=== PATIENT | male | born 1945 | race Caucasian/White ===

== ENCOUNTER 2017-12-14 09:43 | Outpatient (CLI) ==
--- NOTE | 2017-12-14 10:34 | DI ---
Exam: Two x-rays of the chest. Comparison: 02/25/2013. Reason for exam: Chronic obstructive pulmonary disease. FINDINGS: No pneumothorax, pleural effusion, or focal consolidation. Operative changes are seen aft er surgical anchor placement of a right humeral head. The cardiac silhouette is not enlarged. 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 Impression: No acute cardiopulmonary process.
== END 2017-12-14 09:44 | disposition home or self-care (01) ==
LOC: RAD 09:43
PROVIDERS: ATTEND Internal Medicine Pulmonary Disease
DX: J44.9 Chronic obstructive pulmonary disease, unspecified (principal)

== ENCOUNTER 2019-02-14 14:34 | Outpatient (CLI) ==
[2019-02-14 17:31] VITALS: BMI 29.5
== END 2019-02-14 14:35 | disposition home or self-care (01) ==
LOC: LAB 14:34
PROVIDERS: ATTEND Internal Medicine
DX: N18.9 Chronic kidney disease, unspecified (principal); R19.7 Diarrhea, unspecified
CPT/HCPCS: 36415; 80053; 85025

== ENCOUNTER 2019-02-14 16:32 | Inpatient (IN) | payer OTHER ==
[2019-02-14] MEDS ORDERED: NITROSTAT SL PRN (16:50)
[2019-02-14] MEDS ORDERED: TYLENOL PO PRN (16:50)
[2019-02-14] MEDS ORDERED: VISTARIL INJ IM PRN (16:50)
[2019-02-14] MEDS ORDERED: ATROPINE SULFATE PFS IVP PRN (16:50)
[2019-02-14] MEDS ORDERED: LOMOTIL PO ONE (16:57)
[2019-02-14 17:31] VITALS: BMI 29.5
[2019-02-14] MEDS: XOPENEX 1.25 MG NEB SCH (17:43)
[2019-02-14] MEDS: SODIUM CHLORIDE 1,000 ML IV SCH (18:24)
[2019-02-14] MEDS: PROTONIX PO SCH (18:26)
[2019-02-14] MEDS ORDERED: ZYLOPRIM ONE (19:48)
[2019-02-14] MEDS: SOLU-CORTEF 250 MG IVP SCH ×2 (20:29→20:36)
--- NOTE | 2019-02-14 20:41 | DI ---
EXAM: Single, portable AP view(s) chest. HISTORY: Shortness of breath. COMPARISON: 12/14/2017 TECHNIQUE: Single, portable APview(s) of the chest. FINDINGS: Lungs: There is hyperexpansion of the lungs with flattening of the diaphragms. The lungs are clear without consolidation or effusion. There are no suspicious nodules. There is no pneumothorax. Cardiovascular: The heart size and pulmonary vasculature is normal.. The aorta is unremarkable. Edith/Mediastinum: Normal. Osseous structures. Normal for age. IMPRESSION: No acute pulmonary disease. Hyperexpansion of the chest consistent with chronic obstructive pulmonary disease
--- NOTE | 2019-02-14 20:46 | CT ---
EXAM: Noncontrast CT of the abdomen and pelvis. HISTORY: Diarrhea. COMPARISON: 06/29/2010 MRI. TECHNIQUE: Contiguous axial images at 3 mm intervals were obtained from lung bases through the pelvi s. No contrast was given. Coronal reformats were reviewed. FINDINGS: The study is limited without contrast. CHEST: LUNG BASES: Ground-glass opacities seen in both lung bases as well as peribronchial thickening. No definite lobar consolidation. Calcified granulomas seen in the right base. HEART: The heart size is within normal limits.Minimal aortic valve calcifications are noted. ABDOMEN: Evaluation of the soft tissue organs is limited without contrast. LIVER: Noncontrast images of the liver show no solid mass lesion or intrahepatic ductal dilatation. BILIARY: The gallbladder is absent. There are clips in the gallbladder fossa. No fluid or inflamm ation is seen. The common bile duct is normal. SPLEEN: The spleen is unremarkable. A small splenule is noted. PANCREAS: The pancreas shows no mass lesion or peripancreatic inflammation. ADRENAL GLANDS: The adrenal glands are normal. RENAL: The kidneys show no hydronephrosis or nephrolithiasis. There are no obstructing ureteral st ones. No solid mass lesions are identified. There is a 3.1 cm cyst in the mid to inferior right kid carlos. A smaller 1.7 cm cyst is seen as well. AORTA: calcifications are seen. No aneurysm is identified. RETROPERITONEUM: There is no retroperitoneal or mesenteric adenopathy. BOWEL: The bowel is unopacified. There are multiple fluid-filled small bowel without dilatation. There is no obstruction or inflammatory change. There is no free fluid or free air. No significant inflammatory changes are seen. The appendix is identified and is normal. There is no significant diverticulosis or evidence of acute diverticulitis. PELVIS: BLADDER: The bladder is well distended and appears normal. GENITOURINARY STRUCTURES: The prostate is prominent. OSSEOUS STRUCTURES: The osseous structures are normal for age. IMPRESSION 1. Limited study without contrast.No acute intra-abdominal abnormality. No obstructing ureteral sto maureen. 2. The appendix is normal. 3. Multiple fluid-filled small bowel without significant dilatation. No bowel obstruction. 4. Post cholecystectomy.
[2019-02-14] MEDS ORDERED: ZYLOPRIM PO SCH (21:00)
[2019-02-15] MEDS: XOPENEX 1.25 MG NEB SCH ×5 (00:44→23:05)
[2019-02-15] MEDS: SOLU-CORTEF 250 MG IVP SCH ×3 (04:39→20:39)
[2019-02-15] MEDS: PROTONIX PO SCH ×2 (06:01→16:49)
[2019-02-15] MEDS: SODIUM CHLORIDE 1,000 ML IV SCH ×2 (06:15→18:30)
[2019-02-15] MEDS ORDERED: ASPIRIN EC PO SCH (08:00)
--- NOTE | 2019-02-15 08:47 | PCM.PROG ---
Attending Provider: ATTENDING PROVIDER: Dr. MARIANO VANEGAS This patient is seen with Stefania Garza, Nurse Practitioner. DATE OF SERVICE: 02/15/19 SUBJECTIVE: This 74 year old WHITE/ M was hospitalized 02/14/19. The patient is resting comfortably. He is scheduled for barium swallow with upper GI this morning. Kidney function slightly improved. REVIEW OF SYSTEMS: CONSTITUTIONAL: No night sweats. No fatigue, malaise, lethargy. No fever or chills. Weakness. HEENT: Eyes: No visual changes. No eye pain. No eye discharge. ENT: No runny nose. No epistaxis. No sinus pain. No odynophagia. No congestion. RESPIRATORY: Cough, no congestion. No hemoptysis. No shortness of breath. CARDIOVASCULAR: No angina symptoms. No CHF symptoms. No atypical chest pain for CAD. No palpitations. No orthopnea.. GASTROINTESTINAL: No abdominal pain. Nausea. No diarrhea or constipation. No hematemesis. No hematochezia. GENITOURINARY: No urgency. No frequency. No dysuria. No hematuria. No obstructive symptoms. No discharge. No pain. No significant abnormal bleeding. MUSCULOSKELETAL: No musculoskeletal pain; no joint swelling. NEUROLOGICAL: Awake, alert, oriented to time, place and person. No headache. No neck pain. No syncope. No seizures. No dizziness. PSYCHIATRIC: Not anxious. No depression. No suicidal thoughts. No homicidal thoughts. SKIN: No rash. No lesions. No wounds. ENDOCRINE: No unexplained weight loss. No weight gain. HEMATOLOGIC/LYMPHATIC: No anemia. No purpura. No petechiae. No prolonged or excessive bleeding. No palpable lymph nodes. PHYSICAL EXAMINATION: GENERAL: The patient is awake, alert and oriented, lying in bed in no distress. VITAL SIGNS: Temperature 96.3 F, Pulse 80, Respiratory Rate 14, BP 125/88, Pulse Ox 92% HEENT: Head normocephalic, atraumatic. Eyes: Extraocular muscles are intact. Pupils are equal, round and reactive to light and accommodation. Ears: No lesions. Nose appeared normal. Throat: No exudate or erythema. NECK: Supple. No JVD, no carotid bruit. No lymphadenopathy or thyromegaly. LUNGS: Decreased breath sounds. Clear to auscultation. Percussion note normal. Chest symmetrical. HEART: S1, S2, no S3. No murmurs. No cyanosis or clubbing. No ascites. Pulses: Dorsalis pedis and posterior tibial pulses +1 to +2 both sides. ABDOMEN: Soft. Non-tender. Bowel sounds active. No CVA tenderness. No mass felt. EXTREMITIES: No edema. Full range of motion of all extremities, equal. NEUROLOGIC: No focal deficit. Cranial nerves II through XII are grossly intact. No headache, no double vision or headache. SKIN: Not dry. Intact. Turgor-normal. LYMPHATIC: No palpable lymph nodes/no lymphedema. MUSCULOSKELETAL: Normal joints with no swelling. Muscle tone is normal. LAB REVIEW: 02/15/19 05:30 02/15/19 05:30 02/15/19 05:30: Sodium 132.2 L, Potassium 5.18 H, Chloride 98.7, Carbon Dioxide 20.7 L, Anion Gap 17.98, BUN 54.2 H, Creatinine 1.81 H, Estimated GFR (MDRD) 37.00, BUN/Creatinine Ratio 29.94, Glucose 266.2 H, Calcium 9.47, Total Bilirubin 0.41, AST 15.8 L, ALT 16.7, Alkaline Phosphatase 57.7, Total Protein 6.29 L, Albumin 4.15, Globulin 2.14, Albumin/Globulin Ratio 1.93 02/15/19 05:30: WBC 9.30, RBC 4.40 L, Hgb 13.1 L, Hct 40.2 L, MCV 91.4, MCH 29.8 , MCHC 32.6, RDW Coeff of Karen 13.7, Plt Count 285, Immature Gran % (Auto) 0.9, Neut % (Auto) 92.0, Lymph % (Auto) 4.5 L, [place] % (Auto) 1.7, Eos % (Auto) 0.8, Baso % (Auto) 0.1, Immature Gran # (Auto) 0.1, Neut # (Auto) 8.6 H, Lymph # ( Auto) 0.4 L, [place] # (Auto) 0.2 L, Eos # (Auto) 0.1, Baso # (Auto) 0.0 02/15/19 01:10: Total Creatine Kinase 34.2 L, Troponin I < 0.012 02/14/19 22:20: Urine Color Yellow, Urine Clarity Clear, Urine pH 5.0, Ur Specific [place] <=1.005, Urine Protein Negative, Urine Glucose (UA) Negative, Urine Ketones Negative, Urine Blood Negative, Urine Nitrite Negative, Urine Bilirubin Negative, Urine Urobilinogen 0.2, Ur Leukocyte Esterase Negative 02/14/19 17:21: Total Creatine Kinase 23.6 L, Troponin I < 0.012, NT-Pro-B Natriuret Pep 66.800, TSH 2.450 02/14/19 16:55: Puncture Site Rr, O2 Saturation 95.0, ABG pH 7.362, ABG pCO2 35.0, ABG pO2 77.0 L, ABG HCO3 19.9 L, ABG Total CO2 21 L, ABG Base Excess -6 L , Vidal Test +, FiO2 % 21.0 ASSESSMENT: Please see below. 1. Acute renal failure 2. Dehydration 3. Severe GERD 4. Possible gastritis PLAN: 1. Continue IV fluids 2. Upper GI this morning Plan and coordination of the patient's care discussed in the presence of Structural Steel Worker Helper and nurse. SCRIBED BY: Rupali BENAVIDES scribed while in presence of service performed by Dr. Vanegas/Stefania Garza APRN on 02/15/19 ([id number])
[2019-02-15] MEDS ORDERED: PLAVIX PO SCH (09:00)
[2019-02-15] MEDS ORDERED: FLOMAX PO SCH (09:00)
[2019-02-15] MEDS ORDERED: NON-FORMULARY MEDICATION (Semaglutide [Ozempic] 0.5 MG) SQ SCH ×2 (09:00)
[2019-02-15] MEDS ORDERED: ZYLOPRIM PO SCH ×2 (09:00→21:00)
[2019-02-15] MEDS ORDERED: ZOCOR PO SCH ×3 (09:00→21:00)
[2019-02-15] MEDS ORDERED: SYMBICORT 80-4.5 MCG INHALER IH SCH (09:00)
[2019-02-15] MEDS: ASPIRIN EC PO SCH (10:24)
[2019-02-15] MEDS: PLAVIX PO SCH (10:24)
[2019-02-15] MEDS: FLOMAX PO SCH (10:24)
[2019-02-15] MEDS: ANORO ELLIPTA 62.5-25 MCG INH IH SCH (10:29)
--- NOTE | 2019-02-15 11:08 | DI ---
EXAM: Single contrast upper GI History: Dysphagia, GERD. Technique: Patient was given oral barium and multiple spot films of the esophagus, stomach and duode num were obtained in various projections. Findings: The course and caliber of the esophagus are within normal limits. No mucosal lesions or f illing defects identified. Gastroesophageal junction is patent. The caliber of the stomach is withi n normal limits. No obvious mucosal ulcerations or polyps seen within the stomach. The course and c aliber of the duodenum is within normal limits. No wall thickening of the duodenum. No extravasatio n of contrast material. With Valsalva the patient exhibited a small hiatal hernia. Gastroesophageal reflux was present. Impression: Small hiatal hernia and gastroesophageal reflux
--- NOTE | 2019-02-15 12:12 | DI ---
EXAM: LUMBAR SPINE 5 VIEWS HISTORY: Back pain FINDINGS: Subtle scoliosis convex to the right. At least mild bilateral sacroiliac joint arthropath y. There is diffuse moderate to severe degenerative disc and facet disease with no fracture or signi ficant loss of vertebral body height. Subtle posterior spondylolisthesis of L3 on L4 by about 3.9 mm . Oblique views revealed grossly intact pars interarticularis structures. IMPRESSION: 1. Diffuse degenerative disc and facet disease, moderately severe.
[2019-02-15] MEDS: HUMULIN R SUBCUT PRN ×3 (12:18→20:39)
[2019-02-16] MEDS: XOPENEX 1.25 MG NEB SCH (04:22)
[2019-02-16 05:09] VITALS: BP 128/69; TEMP 97.8
[2019-02-16] MEDS: PROTONIX PO SCH (06:04)
[2019-02-16] MEDS: HUMULIN R SUBCUT PRN (06:04)
[2019-02-16] MEDS: SOLU-CORTEF 250 MG IVP SCH (06:04)
[2019-02-16] MEDS: SODIUM CHLORIDE 1,000 ML IV SCH (06:10)
[2019-02-16] MEDS: FLOMAX PO SCH (08:41)
[2019-02-16] MEDS: ANORO ELLIPTA 62.5-25 MCG INH IH SCH (08:41)
[2019-02-16] MEDS: ASPIRIN EC PO SCH (08:41)
[2019-02-16] MEDS: PLAVIX PO SCH (08:41)
[2019-02-16] MEDS ORDERED: NON-FORMULARY MEDICATION (Semaglutide [Ozempic] 0.5 MG) SQ SCH (09:00)
[2019-02-16] MEDS ORDERED: ZYLOPRIM PO SCH (21:00)
--- NOTE | 2019-02-22 10:44 | ECHO2D ---
Date of Exam: 02/16/19 Ordering Physician: DR. MARIANO VANEGAS Room #: 116 Reason for Echo: SOA AT REST, CAD, HTN, COPD M-Mode Normal Adult Results LV Dimensions Normal Adult Results AoV Opening excursions >1.6 >1.6 LVEDD-base- 3.5-5.8 6.2 Ao root dimensions 2.0-3.7 4.0 LVESD-base- 3.1-4.6 L. Atrium dimensions 1.9-3.8 4.4 Post. Wall thickness 0.8-1.1 1.2 IV septum (thickness) 0.7-1.2 1.1 Post. Wall excursion 0.72-1.3 NORMAL Septal motion NORMAL Systolic motion R. Ventricular cavity 1.5-2.0 4.5 LVEF 60% 54% Paradoxical septal wall motion NORMAL 2-D : ENLARGED LEFT ATRIAL CAVITY--ENLARGED RIGHT VENTRICLE CAVITY--ENLARGED LEFT VENTRICLE CAVITY--NORMAL LEFT VENTRICULAR CONTRACTILITY--NORMAL VALVES--NO EFFUSION, NO THROMBUS M-MODE: MV: NORMAL AV: NORMAL TV: NORMAL PV: CHAMBER SIZE: ENLARGED RIGHT VENTRICLE, LEFT VENTRICLE AND LEFT ATRIAL CAVITIES WALL MOTION: NORMAL PERICARDIUM: NORMAL INTERPRETATION: 1. NORMAL LEFT VENTRICULAR CONTRACTILITY 2. NORMAL VALVES 3. ENLARGED LEFT VENTRICLE, RIGHT VENTRICLE AND LEFT ATRIAL CAVITIES MTDD
--- NOTE | 2019-02-22 12:43 | DS ---
DATE OF SERVICE: 02/16/19 FINAL DIAGNOSIS: 1. RENAL AZOTEMIA 2. DEHYDRATION 3. CHRONIC BRONCHITIS 4. SEVERE CHRONIC LUNG DISEASE 5. GOUTY ARTHRITIS 6. DILATED CARDIOMYOPATHY 7. NONCOMPLIANCE ON FOLLOWUP, MEDICATIONS Echocardiogram was done on the day of discharge showing dilated LV cavity with normal LV contractility, enlarged RV cavity, borderline enlarged LA cavity. The valves looked normal. The patient's upper GI showed reflux disease. CT scan of the abdomen was negative. Chest x-ray COPD. DISCHARGE INSTRUCTIONS: Followup appointment with Dr. Richardson on Monday. The patient is to call his office and make an appointment. MEDICATIONS AT DISCHARGE: Glipizide 5 mg two tablets p.o. daily Plavix 75 mg one tab p.o. daily Aspirin 81 mg one tab p.o. daily Anoro Ellipta one puff INH daily Allopurinol 300 mg one tab p.o. b.i.d. Flomax 0.4 mg one cap p.o. daily Simvastatin 40 mg one p.o. daily Metformin 1000 mg one tab p.o. b.i.d. Ozempic 0.25 mg/0.2 ml pen injector 0.5 mg SQ weekly Lasix 40 mg one tab p.o. daily Protonix 40 mg one cap p.o. daily NEW PRESCRIPTIONS: Prednisone 10 mg p.o. daily with meal Carafate 1 gm p.o. a.c. and h.s. DIET INSTRUCTIONS: Regular diet. ACTIVITY: As patient tolerates. SMOKING: Former smoker DISEASE SPECIFIC EDUCATION: Diagnosis Medications Diet HOSPITAL COURSE: The patient was treated with IV fluids and steroids. The patient's condition improved. His breathing got a lot better. On physical exam at discharge, his lungs had more air entry. Heart S1, S2. There was no congestive heart failure. There was no S3 or JVP. The patient was also given Protonix and Carafate. At time of discharge, his Allopurinol dose was decreased to 300 mg, Lasix decreased to one tablet four days a week. He was advised to drink a lot of fluids. A1C, PSA and rapid Flu A and B were done. Condition at time of discharge stable. Prognosis guarded because of the patient's noncompliance. The patient has severe chronic lung disease along with other multiple medical problems and noncompliance. TIME SPENT: More than 60 minutes. [facility]
--- NOTE | 2019-02-22 12:45 | PN ---
BILLING 02/14/19 ADMISSION DAY LEVEL 5 02/15/19 INTERMEDIATE 02/16/19 DISCHARGE MTDD
== END 2019-02-16 10:30 | disposition home or self-care (01) | DRG 641 ==
LOC: MEDSURG B 16:32
PROVIDERS: ADMIT Internal Medicine; ATTEND Internal Medicine
DX: E86.0 Dehydration (principal); N17.9 Acute kidney failure, unspecified; I42.0 Dilated cardiomyopathy; J42 Unspecified chronic bronchitis; J44.9 Chronic obstructive pulmonary disease, unspecified; M10.9 Gout, unspecified; E78.5 Hyperlipidemia, unspecified; E11.9 Type 2 diabetes mellitus without complications; R06.02 Shortness of breath; R13.10 Dysphagia, unspecified; K21.9 Gastro-esophageal reflux disease without esophagitis; K29.70 Gastritis, unspecified, without bleeding; Z91.19 Patient's noncompliance with other medical treatment and regimen
CPT/HCPCS: 36415; 80053; 81001; 82550; 82803; 82962; 83036; 83880; 84443; 84484; 85025; 87015; 87045; 87493; 87899; 93005; 93010; 94640

== ENCOUNTER 2019-02-27 13:54 | Outpatient (CLI) ==
--- NOTE | 2019-02-27 15:05 | US ---
EXAM: Carotid ultrasound HISTORY: Dizziness COMPARISON: None TECHNIQUE: Carotid ultrasound was performed using Duplex imaging with lama scale, color, and Doppler imaging performed. FINDINGS: Right carotid: There is atherosclerotic plaque in the common carotid and bulb/internal carotid arter y. Peak systolic velocity measurement in the right internal carotid artery is 0.90 meters per second . End-diastolic velocity measurement in the right internal carotid artery is 0.37 meters per second. Right internal to common carotid artery peak systolic velocity ratio is 2.0. Flow in the right daniel tebral artery is antegrade. Left carotid: There is atherosclerotic plaque in the common carotid and bulb/internal carotid artery . Peak systolic velocity measurement in the left internal carotid artery is 1.09 meters per second. End-diastolic velocity measurement in the left internal carotid artery is 0.49 meters per second. L eft internal to common carotid artery peak systolic velocity ratio measures 1.3. Flow in the left ve rtebral artery is antegrade. IMPRESSION: 1. Right internal carotid: Mild (less than 50%) stenosis. 2. Left internal carotid: Mild (less than 50%) stenosis.
--- NOTE | 2019-02-27 16:26 | MRI ---
EXAM: MRI of the brain with and without contrast HISTORY: Dizzy TECHNIQUE: Multiplanar imaging of the brain was performed using T1, T2, inversion recovery, diffusio n, T2 gradient and postcontrast T1W sequences. FINDINGS: No abnormal enhancement is identified within the brain on postcontrast images. The latera l ventricles and cortical sulci are prominent from atrophy. Scattered T2 high signal foci are seen w ithin the supratentorial white matter. The basal cisterns are patent. Normal flow voids are identif ied within the basal cisterns. The seventh and eighth cranial nerve complexes are normal. No acute hemorrhages are seen. There is no mass effect. There are no extraaxial collections. There is no re stricted diffusion. The craniocervical junction and midline structures are normal. The soft tissues of the skull base an d nasopharynx appear normal. The paranasal sinuses and mastoid air cells are clear. The extracrania l soft tissues are normal. IMPRESSION: There is no acute cerebral infarction. Mild chronic small vessel ischemic changes seen within the supratentorial white matter. Mild cerebral atrophy. No acute intracranial abnormalities are seen.
== END 2019-02-27 13:55 | disposition home or self-care (01) ==
LOC: RAD 13:54
PROVIDERS: ATTEND Internal Medicine
DX: R42 Dizziness and giddiness (principal)
CPT/HCPCS: 36415; 80053; 85025

== ENCOUNTER 2019-03-02 11:06 | Emergency (ER) | payer OTHER ==
[2019-03-02 11:14] VITALS: BP 108/67; TEMP 97.5; BMI 29.6
--- NOTE | 2019-03-02 11:23 | ED.PDOC ---
General ED Provider: Dr. EVANGELINA MÉNDEZ Chief Complaint: Non-specific Complaint Stated Complaint: 74 y old patient was taking metformin and glipizide but developed hypoglycemia.Here for an adjustement, Time Seen by Physician: 11:15 Mode of Arrival: Walk-In Information Source: Patient, Family Exam Limitations: No limitations Primary Care Provider: MARIANO VANEGAS Nursing and Triage Documentation Reviewed and Agree: Yes Does patient meet sepsis criteria?: No System Inflammatory Response Syndrome: Not Applicable Sepsis Protocol: For patient's 13 years and over: Temp is 96.8 and below OR 101 and greater Pulse >90 BPM Resp >20/minute Acutely Altered Mental Status Are patient's symptoms suggestive of a new infection, such as: -Pneumonia -Skin, Soft Tissue -Endocarditis -UTI -Bone, Joint Infection -Implantable Device -Acute Abdominal Infection -Wound Infection -Meningitis -Blood Stream Catheter Infection -Unknown GI Complaint Exam - Abdominal Pain Complaint/Exam Duration: 2 days Symptoms Are: Still present Timing: Intermittent Initial Severity: Mild Associated Signs and Symptoms: Reports: Decreased activity AAA Risk Factors: Reports: Smoking Cardiac Risk Factors: Reports: Smoking Related Surgical History: Reports: None Abdominal Findings: Present: None Differential Diagnoses: Diverticulitis, Pancreatitis Quality Indicator For Non-Traumatic Chest Pain/Syncope: EKG Performed Review of Systems - Review Of Systems Constitutional: Reports: Weakness Eyes: Reports: No symptoms Ears, Nose, Mouth, Throat: Reports: No symptoms Respiratory: Reports: No symptoms Cardiac: Reports: No symptoms GI: Reports: No symptoms : Reports: No symptoms Musculoskeletal: Reports: No symptoms Skin: Reports: No symptoms Neurological: Reports: Weakness Endocrine: Reports: No symptoms Hematologic/Lymphatic: Reports: No symptoms All Other Systems: Reviewed and Negative Past Medical History - Past Medical History Previously Healthy: No Endocrine: Reports: None Cardiovascular: Reports: None Respiratory: Reports: None Hematological: Reports: None Gastrointestinal: Reports: Other Genitourinary: Reports: None Neuro/Psych: Reports: None Musculoskeletal: Reports: None Cancer: Reports: None Other Pertinent Past Medical History: smoking - Surgical History General Surgical History: Reports: None - Family History Family History: Reports: None - Social History Smoking Status: Former smoker Hx Substance Use: No Alcohol Screening: None Physical Exam - Physical Exam Appearance: Well-appearing, No pain distress Ill-appearing: None Pain Distress: None Eyes: AMARIS ENT: Ears normal Neck: Supple Respiratory: Airway patent, Breath sounds clear, Breath sounds equal Cardiovascular: RRR, Pulses normal GI/: Soft, Nontender Musculoskeletal: Normal strength, ROM intact, No edema Skin: Warm, Dry Neurological: Sensation intact, Motor intact, Reflexes intact Psychiatric: Affect appropriate Interpretation - Radiology Interpretation Radiology Interpretation By: ED Physician Radiology Results: Negative Exam Interpreted: CXR Radiology Interpretation By: ED Physician Radiology Results: Negative Exam Interpreted: CT Scan Critical Care Note - Critical Care Note Total Time (mins): 0 Course - Course Hematology/Chemistry: 03/02/19 11:34 03/02/19 11:34 Orders, Labs, Meds: Lab Review 03/02/19 03/02/19 03/02/19 11:34 11:34 11:50 WBC 6.24 RBC 4.20 L Hgb 12.8 L Hct 39.1 L MCV 93.1 MCH 30.5 MCHC 32.7 RDW Coeff of Karen 14.6 Plt Count 214 Immature Gran % (Auto) 1.0 Neut % (Auto) 78.0 Lymph % (Auto) 12.0 [place] % (Auto) 5.8 Eos % (Auto) 2.7 Baso % (Auto) 0.5 Immature Gran # (Auto) 0.1 Neut # (Auto) 4.9 Lymph # (Auto) 0.8 [place] # (Auto) 0.4 Eos # (Auto) 0.2 Baso # (Auto) 0.0 Sodium 136.4 Potassium 4.67 Chloride 100.0 Carbon Dioxide 26.7 Anion Gap 14.37 BUN 43.8 H Creatinine 2.10 H D Estimated GFR (MDRD) 31.00 BUN/Creatinine Ratio 20.85 Glucose 145.3 H Lactic Acid Calcium 8.96 Total Bilirubin 0.40 AST 32.1 ALT 18.2 Alkaline Phosphatase 57.5 Total Protein 6.28 L Albumin 4.27 Globulin 2.01 Albumin/Globulin Ratio 2.12 Urine Color Yellow Urine Clarity Clear Urine pH 5.5 Ur Specific [place] 1.010 Urine Protein Negative Urine Glucose (UA) Negative Urine Ketones Negative Urine Blood Negative Urine Nitrite Negative Urine Bilirubin Negative Urine Urobilinogen 0.2 Ur Leukocyte Esterase Negative 03/02/19 12:05 WBC RBC Hgb Hct MCV MCH MCHC RDW Coeff of Karen Plt Count Immature Gran % (Auto) Neut % (Auto) Lymph % (Auto) [place] % (Auto) Eos % (Auto) Baso % (Auto) Immature Gran # (Auto) Neut # (Auto) Lymph # (Auto) [place] # (Auto) Eos # (Auto) Baso # (Auto) Sodium Potassium Chloride Carbon Dioxide Anion Gap BUN Creatinine Estimated GFR (MDRD) BUN/Creatinine Ratio Glucose Lactic Acid 1.74 Calcium Total Bilirubin AST ALT Alkaline Phosphatase Total Protein Albumin Globulin Albumin/Globulin Ratio Urine Color Urine Clarity Urine pH Ur Specific [place] Urine Protein Urine Glucose (UA) Urine Ketones Urine Blood Urine Nitrite Urine Bilirubin Urine Urobilinogen Ur Leukocyte Esterase Orders Category Date Time Status IV [ED IV/MEDIPORT/POWERPORT] .ONCE EMERGENCY 03/02/19 11:42 Active IV [ED IV/MEDIPORT/POWERPORT] .ONCE EMERGENCY 03/02/19 11:45 Active CBC W/ AUTO DIFF Stat LAB 03/02/19 11:34 Completed COMPREHENSIVE METABOLIC PANEL Stat LAB 03/02/19 11:34 Completed LACTIC ACID Stat LAB 03/02/19 12:05 Received URINALYSIS C & S IF INDICATED Stat LAB 03/02/19 11:50 Completed 0.9 % Sodium Chloride [Saline Flush] MEDS 03/02/19 11:42 Ordered 1 syr IVF PRN PRN 0.9 % Sodium Chloride [Saline Flush] MEDS 03/02/19 11:45 Ordered 1 syr IVF PRN PRN CHEST, 2 VIEWS PA & LAT Stat RADS 03/02/19 11:[address] HEAD W/O CONTRAST Stat RADS 03/02/19 11:39 Taken Medications Generic Name Dose Route Start Last Admin Trade Name Freq PRN Reason Stop Dose Admin Sodium Chloride 1 syr 03/02/19 11:42 Saline Flush IVF PRN PRN To flush IV Sodium Chloride 1 syr 03/02/19 11:45 Saline Flush IVF PRN PRN To flush IV Vital Signs: Temp Pulse Resp BP Pulse Ox 03/02/19 11:07 97.5 F L 103 H 20 108/67 93 L Departure - Departure Time of Disposition: 12:47 Disposition: HOME SELF-CARE Discharge Problem: Hypoglycemia associated with diabetes Instructions: What to Do if Your Blood Sugar is Low (ED) Condition: Good Pt referred to PMD for follow-up: Yes (f/u with ) IPMP verified?: No Additional Instructions: DC Ozemp[i until seen by Dr Vanegas./ Monday/ Allergies/Adverse Reactions: Allergies No Known Allergies Allergy (Verified 03/02/19 11:14) Home Medications: Ambulatory Orders Allopurinol 300 tab PO BID 02/15/19 Aspirin [Adult Aspirin] 81 mg PO DAILY 02/15/19 Clopidogrel Bisulfate [Plavix] 75 mg PO DAILY 02/15/19 Furosemide [Lasix] 40 tab PO DAILY 02/15/19 Glipizide 2 tab PO DAILY 02/15/19 Metformin HCl 1 tab PO BID 02/15/19 Pantoprazole Sodium [Protonix] 40 mg PO DAILY 02/15/19 Semaglutide [Ozempic] 0.5 mg SQ WEEKLY 02/15/19 Simvastatin 1 tab PO DAILY 02/15/19 Tamsulosin HCl [Flomax] 1 cap PO DAILY PRN 02/15/19 Umeclidinium Brm/Vilanterol Tr [Anoro Ellipta 62.5-25 Mcg INH] 1 puff INH DAILY PRN 02/15/19 Prednisone 10 mg PO DAILYWM #9 tablet 02/16/19 Sucralfate [Carafate] 1 gm PO ACHS #40 tablet 02/16/19 Disposition Discussed With: Patient, Family
--- NOTE | 2019-03-02 12:15 | CT ---
EXAM: CT scan of the head without contrast HISTORY: left arm weakness TECHNIQUE: Helical imaging of the head was performed without contrast. 5 mm thin axial images and c oronal and sagittal images were provided for interpretation. Comparison MRI of the brain dated 02/27/2019. FINDINGS: The lateral ventricles and cortical sulci are prominent from atrophy. The lama-white inte rface appears normal. No acute hemorrhages are seen. There is no mass effect. The basal cisterns a re patent. The calvarium appears normal. The paranasal sinuses and mastoid air cells are clear. IMPRESSION: No acute intracranial abnormalities are seen.
--- NOTE | 2019-03-02 13:14 | DI ---
Exam: Two-view chest x-ray. Date: 03/02/2019. Comparison: 02/14/2019. HISTORY: Hypoglycemia. FINDINGS: No acute osseous abnormalities are seen. There is borderline hyperinflation. The lungs a re clear with calcified granulomas. Cardiac silhouette and pulmonary vasculature are normal. Impression: No acute intrathoracic findings. Old granulomatous disease.
== END 2019-03-02 12:54 | disposition home or self-care (01) ==
LOC: ED 11:06
DX: E11.649 Type 2 diabetes mellitus with hypoglycemia without coma (principal); F17.210 Nicotine dependence, cigarettes, uncomplicated; R53.1 Weakness; Z79.899 Other long term (current) drug therapy
CPT/HCPCS: 36415; 80053; 81001; 83605; 85025; 99283

== ENCOUNTER 2019-03-05 13:01 | Outpatient (CLI) | END 2019-03-05 13:02 | disposition home or self-care (01) | LOC: LAB 13:01 | PROVIDERS: ATTEND Internal Medicine | DX: R94.4 Abnormal results of kidney function studies (principal) | CPT/HCPCS: 36415; 80053 ==

== ENCOUNTER 2022-01-24 11:43 | Inpatient (IN) ==
[2022-01-24] MEDS ORDERED: NITROSTAT SL PRN (12:20)
[2022-01-24] MEDS ORDERED: ATROPINE SULFATE PFS IVP PRN (12:20)
[2022-01-24 12:32] VITALS: BMI 29.2
[2022-01-24 12:34] LABS: BASOPHILS % (AUTO) 0.3 % (0.0-3.0); EOSINOPHILS % (AUTO) 0.3 % (0.0-7.0); HEMATOCRIT 50.9 % (42.0-52.0); HEMOGLOBIN 16.2 g/dl (14.0-18.0); IMMATURE GRANULOCYTE % (AUTO) 0.3 % (0.0-5.0); LYMPHOCYTES # (AUTO) 0.6 K/uL (0.60-3.4); MEAN CORPUSCULAR HEMOGLOBIN 26.8 pg (27.0-31.0); MEAN CORPUSCULAR HGB CONC 31.8 (31.8-35.4); MEAN CORPUSCULAR VOLUME 84.1 fl (80.0-94.0); MONOCYTES # (AUTO) 0.8 K/uL (0.4-2.0); NEUTROPHILS # (AUTO) 10.3 K/ul (2.0-6.9); NEUTROPHILS % (AUTO) 87.4 % (42.2-75.2); PLATELET COUNT 225 10^3/uL (140-440); RDW COEFFICIENT OF VARIATION 14.6 % (11.6-14.8); RED BLOOD COUNT 6.05 10^6/ul (4.70-6.10); WHITE BLOOD COUNT 11.75 K/ul (4.2-10.2)
[2022-01-24 12:47] LABS: LYMPHOCYTES % (AUTO) 4.7 (10.0-50.0)
[2022-01-24 12:50] LABS: ALANINE AMINOTRANSFERASE 28.2 U/L (0-50); ALBUMIN 4.51 g/dL (3.5-5.0); ALKALINE PHOSPHATASE 88.3 U/L (56-119); ASPARTATE AMINO TRANSFERASE 94.8 U/L (17-59); BILIRUBIN,TOTAL 1.15 mg/dL (0.2-1.3); BLOOD UREA NITROGEN 28.6 mg/dL (9-20); CALCIUM 10.01 mg/dL (8.4-10.2); CARBON DIOXIDE 31.3 mmol/L (22-30.0); CHLORIDE 101.2 mmol/L (98-107); CREATININE 1.1 mg/dL (0.60-1.10); POTASSIUM 4.09 mmol/L (3.5-5.1); SODIUM 139.5 mmol/L (134.5-145); TOTAL PROTEIN 7.54 g/dL (6.3-8.2)
[2022-01-24 13:02] LABS: TROPONIN I 0.034 ng/ml (0.0000-0.120)
[2022-01-24 13:06] LABS: ABG O2 HGB 87.6 % (95-100); ABG PH 7.43 (7.35-7.45); BEecf 5.6 (-2.0-3.0); COHb 2.8 (0.5-1.5); HCO3 29.9 (21-28); MetHb 1.1 (0-1.5); TCO2 31.3 (19-24); sO2 90.1 % (94-98); tHb 16.3 g/dl (11.7-17.4)
[2022-01-24 13:19] LABS: ERYTHROCYTE SEDIMENTATION RATE 3 mm/hr (0-15)
[2022-01-24 13:21] LABS: THYROID STIMULATING HORMONE 0.95 uIU/L (0.465-4.68)
[2022-01-24 13:33] LABS: CREATINE KINASE 5653.7 U/L (55-170)
[2022-01-24] MEDS: DECADRON IM SCH (14:00)
[2022-01-24] MEDS: ZITHROMAX PO SCH (14:00)
[2022-01-24] MEDS: ROCEPHIN 1 GM/50 ML D5W 1 GM/50 ML BAG IV SCH (14:03)
[2022-01-24] MEDS: DUONEB NEB SCH ×2 (14:10→20:00)
[2022-01-24 14:13] LABS: CREATINE KINASE MB 14.6 ng/ml (0.0-2.38)
[2022-01-24] MEDS: DEXTROSE 5%-1/2NS IV SOLUTION 1,000 ML IV SCH (14:13)
--- NOTE | 2022-01-24 15:53 | US ---
EXAM: ULTRASOUND CAROTID DUPLEX, BILATERAL HISTORY: Falls, dizziness FINDINGS: Landis-scale ultrasound, color Doppler and spectral analysis was performed. Velocities are in meters per second. By landis scale and color Doppler imaging, there were regions of heterogeneous plaque formation identif ied within the carotid bulbs and internal carotid arteries. These regions of plaque appeared to frida in less than 50% vessel diameter. RIGHT: External carotid artery peak systolic velocity: 1.05/0.12 Common carotid artery peak systolic velocity/end diastolic velocity: 0.45/0.1 Internal carotid artery peak systolic velocity: 0.49 ICA/CCA peak systolic velocity ratio: 1.1 ICA end diastolic velocity: 0.12 LEFT: External carotid artery peak systolic velocity: 0.66/0.0 Common carotid artery peak systolic velocity/end diastolic velocity: 0.39/0.09 Internal carotid artery peak systolic velocity: 0.4 ICA/CCA peak systolic velocity ratio: 1.0 ICA end diastolic velocity: 0.09 The right and left vertebral arteries were antegrade. Exam was described as technically difficult. IMPRESSION: 1. By landis scale and color Doppler imaging, there were regions of heterogeneous plaque formation bishnu ntified within the carotid bulbs and internal carotid arteries. These regions of plaque appeared to remain less than 50% vessel diameter. 2. Internal carotid artery peak systolic velocities and ICA/CCA peak systolic velocity ratios indica te no hemodynamically significant stenosis bilaterally. 3. Both vertebral arteries were antegrade.
--- NOTE | 2022-01-24 16:36 | DI ---
EXAM: Chest two views HISTORY: Shortness of air COMPARISON: 12/10/2019 TECHNIQUE: Two views of the chest were performed FINDINGS: Left basilar infiltrate and/or atelectasis. The There is no pleural effusion or pneumoth orax. The heart is normal in size. The mediastinal contour is normal. There are no acute abnormali ties of the bones. Surgical anchor right proximal humerus IMPRESSION: Left basilar pneumonia and/or atelectasis.
--- NOTE | 2022-01-24 16:41 | DI ---
EXAM: Radiographs, lumbar spine HISTORY: Recurrent falls. COMPARISON: 02/15/2019. TECHNIQUE: Five views. FINDINGS: Right convex curvature centered in the mid lumbar spine. Alignment normal. No fracture o r subluxation. Moderate to severe multilevel degenerative disc disease and facet arthropathy. Sacra l arcuate lines intact. Excreted contrast in the urinary tract. Atherosclerotic calcifications note d. Cholecystectomy clips present. IMPRESSION: Moderate to severe degenerative changes without acute fracture.
--- NOTE | 2022-01-24 16:47 | DI ---
EXAM: Radiographs, cervical spine HISTORY: Recurrent falls. COMPARISON: CT 12/10/2019. TECHNIQUE: Six views. FINDINGS: Retrolisthesis C3 on C4 by 0.2 cm with similar findings of C4 on C5. Moderate to severe l oss of disc height with endplate osteophyte formation, uncovertebral hypertrophy and facet arthropath y throughout the cervical spine. No acute fracture or subluxation. Prevertebral soft tissues are no rmal. Lung apices are clear. Suture anchors in the right humeral head IMPRESSION: Moderate to severe degenerative changes without acute fracture.
--- NOTE | 2022-01-24 16:47 | DI ---
EXAM: Radiographs, right shoulder HISTORY: Recurrent falls. COMPARISON: 05/15/2012. TECHNIQUE: Three views. FINDINGS: Suture anchors in the right humeral head. No acute fracture or dislocation. Mild glenohu meral and acromioclavicular osteoarthritis. No erosions. Right lung clear. IMPRESSION: No fracture or dislocation.
--- NOTE | 2022-01-24 16:47 | CT ---
EXAM: CT Head with and without contrast HISTORY: Falls COMPARISON: None TECHNIQUE: CT head performed with and without contrast FINDINGS: There is no mass effect, midline shift, or intracranial hemmorhage. Joshi white differenti ation is preserved. There is no extra-axial collection. The ventricles, sulci, and basal cisterns a re patent and symmetric. There is chronic ischemic disease of the white matter and cerebral volume l oss. There is no depressed calvarial fracture. The mastoid air cells are clear. The visualized para nasal sinuses are clear. There are intracranial atherosclerotic calcifications. No abnormal area of enhancement. IMPRESSION: 1. No acute intracranial abnormality. No abnormal area of enhancement. 2. Chronic ischemic disease of the white matter and cerebral volume loss. All CT scans are performed using dose optimization techniques as appropriate to the performed exam an d include at least one of the following: Automated exposure control, adjustment of the mA and/or kV according t o size, and the use of iterative reconstruction technique.
--- NOTE | 2022-01-24 16:49 | DI ---
EXAM: Three views of the right ankle HISTORY: Falls. COMPARISON: None FINDINGS: There is no cortical irregularity or displaced fracture of the right ankle. Joint spaces m aintained. There is minimal osteophyte formation. The soft tissues are normal. IMPRESSION: Minimal degenerative disease of the right ankle.
[2022-01-24] MEDS: PROTONIX PO SCH (17:52)
[2022-01-24] MEDS: HUMULIN R SUBCUT PRN ×2 (17:53→20:33)
[2022-01-24 20:49] LABS: BORDETELLA PARAPERTUSSIS (PCR) NOT DETECTED (NOT DETECT); BORDETELLA PERTUSSIS (PCR) NOT DETECTED (NOT DETECT); CHLAMYDIA PNEUMONIAE (PCR) NOT DETECTED (NOT DETECT); CORONAVIRUS 229E (PCR) NOT DETECTED (NOT DETECT); CORONAVIRUS HKU1 (PCR) NOT DETECTED (NOT DETECT); CORONAVIRUS NL63 (PCR) NOT DETECTED (NOT DETECT); CORONAVIRUS OC43 (PCR) NOT DETECTED (NOT DETECT); HUMAN METAPNEUMOVIRUS (PCR) NOT DETECTED (NOT DETECT); HUMAN RHINOVIRUS/ENTEROV (PCR) NOT DETECTED (NOT DETECT); INFLUENZA B (PCR) NOT DETECTED (NOT DETECT); MYCOPLASMA PNEUMONIAE (PCR) NOT DETECTED (NOT DETECT); PARAINFLUENZA VIRUS 1 (PCR) NOT DETECTED (NOT DETECT); PARAINFLUENZA VIRUS 2 (PCR) NOT DETECTED (NOT DETECT); PARAINFLUENZA VIRUS 3 (PCR) NOT DETECTED (NOT DETECT); PARAINFLUENZA VIRUS 4 (PCR) NOT DETECTED (NOT DETECT); RESPIRATORY SYNCYTIAL V (PCR) NOT DETECTED (NOT DETECT)
[2022-01-24 21:39] LABS: ADENOVIRUS (PCR) NOT DETECTED (NOT DETECT); SARS_COV_2 (PCR) DETECTED (NOT DETECT)
[2022-01-25] MEDS ORDERED: ROBITUSSIN SUGAR-FREE PO PRN (03:01)
[2022-01-25] MEDS: DEXTROSE 5%-1/2NS IV SOLUTION 1,000 ML IV SCH (03:33)
[2022-01-25] MEDS: DUONEB NEB SCH ×4 (04:50→19:55)
[2022-01-25] MEDS: TYLENOL PO PRN ×2 (05:23→20:37)
[2022-01-25] MEDS: PROTONIX PO SCH ×2 (05:30→16:02)
[2022-01-25 05:35] LABS: BASOPHILS % (AUTO) 0.2 % (0.0-3.0); EOSINOPHILS % (AUTO) 0.1 % (0.0-7.0); HEMATOCRIT 46.1 % (42.0-52.0); HEMOGLOBIN 14.8 g/dl (14.0-18.0); IMMATURE GRANULOCYTE % (AUTO) 0.3 % (0.0-5.0); LYMPHOCYTES # (AUTO) 0.6 K/uL (0.60-3.4); LYMPHOCYTES % (AUTO) 5.9 (10.0-50.0); MEAN CORPUSCULAR HGB CONC 32.1 (31.8-35.4); MEAN CORPUSCULAR VOLUME 84.1 fl (80.0-94.0); MONOCYTES # (AUTO) 0.6 K/uL (0.4-2.0); MONOCYTES % (AUTO) 6.8 (0-10); NEUTROPHILS # (AUTO) 8.2 K/ul (2.0-6.9); NEUTROPHILS % (AUTO) 86.7 % (42.2-75.2); PLATELET COUNT 211 10^3/uL (140-440); RDW COEFFICIENT OF VARIATION 14.8 % (11.6-14.8); RED BLOOD COUNT 5.48 10^6/ul (4.70-6.10)
[2022-01-25 05:50] LABS: ALBUMIN 3.97 g/dL (3.5-5.0); ALKALINE PHOSPHATASE 76.9 U/L (56-119); ASPARTATE AMINO TRANSFERASE 87.7 U/L (17-59); BILIRUBIN,TOTAL 0.94 mg/dL (0.2-1.3); BLOOD UREA NITROGEN 25.7 mg/dL (9-20); CALCIUM 9.34 mg/dL (8.4-10.2); CARBON DIOXIDE 31.6 mmol/L (22-30.0); CHLORIDE 101.7 mmol/L (98-107); CREATININE 1.01 mg/dL (0.60-1.10); GLUCOSE 207.1 mg/dL (74-106); POTASSIUM 4.49 mmol/L (3.5-5.1); SODIUM 138.2 mmol/L (134.5-145); TOTAL PROTEIN 6.47 g/dL (6.3-8.2)
[2022-01-25] MEDS: HUMULIN R SUBCUT PRN ×4 (06:23→20:33)
--- NOTE | 2022-01-25 08:47 | PCM.PROG ---
Attending Provider: ATTENDING PROVIDER: Dr. MARIANO VANEGAS This patient is seen with Stefania Garza, Nurse Practitioner. DATE OF SERVICE: 01/25/22 SUBJECTIVE: This 76 year old /WHITE M was hospitalized 01/24/22. The patient is resting comfortably. Renal function has improved. All x-ray and CT's showed no fracture from fall. Chest x-ray showed left pneumonitis likely from COVID. Blood pressure has elevated systolic to 150s. The patient has previously discontinued all his medications on his own. REVIEW OF SYSTEMS: CONSTITUTIONAL: No night sweats. No fatigue, malaise, lethargy. No fever or chills. Weakness. HEENT: Eyes: No visual changes. No eye pain. No eye discharge. ENT: No runny nose. No epistaxis. No sinus pain. No odynophagia. No congestion. RESPIRATORY: Cough, no congestion. No hemoptysis. No shortness of breath. CARDIOVASCULAR: No angina symptoms. No CHF symptoms. No atypical chest pain for CAD. No palpitations. No orthopnea.. GASTROINTESTINAL: No abdominal pain. No nausea or vomiting. No diarrhea or constipation. No hematemesis. No hematochezia. GENITOURINARY: No urgency. No frequency. No dysuria. No hematuria. No obstructive symptoms. No discharge. No pain. No significant abnormal bleeding. MUSCULOSKELETAL: No musculoskeletal pain; no joint swelling. NEUROLOGICAL: Awake, alert, oriented to time, place and person. No headache. No neck pain. No syncope. No seizures. No dizziness. PSYCHIATRIC: Not anxious. No depression. No suicidal thoughts. No homicidal thoughts. SKIN: No rash. No lesions. No wounds. ENDOCRINE: No unexplained weight loss. No weight gain. HEMATOLOGIC/LYMPHATIC: No anemia. No purpura. No petechiae. No prolonged or excessive bleeding. No palpable lymph nodes. PHYSICAL EXAMINATION: GENERAL: The patient is awake, alert and oriented, sitting in bed in no distress. VITAL SIGNS: Temperature 98.7 F, Pulse 69, Respiratory Rate 20, BP 153/82, Pulse Ox 95% HEENT: Head normocephalic, atraumatic. Eyes: Extraocular muscles are intact. Pupils are equal, round and reactive to light and accommodation. Ears: No lesions. Nose appeared normal. Throat: No exudate or erythema. NECK: Supple. No JVD, no carotid bruit. No lymphadenopathy or thyromegaly. LUNGS: Diminished breath sounds. Clear to auscultation. Percussion note normal. Chest symmetrical. HEART: S1, S2, no S3. No murmurs. No cyanosis or clubbing. No ascites. Pulses: Dorsalis pedis and posterior tibial pulses +1 to +2 both sides. ABDOMEN: Soft. Non-tender. Bowel sounds active. No CVA tenderness. No mass felt. EXTREMITIES: No edema. Full range of motion of all extremities, equal. NEUROLOGIC: No focal deficit. Cranial nerves II through XII are grossly intact. No headache. No double vision. SKIN: Not dry. Intact. Turgor-normal. LYMPHATIC: No palpable lymph nodes/no lymphedema. MUSCULOSKELETAL: Normal joints with no swelling. Muscle tone is normal. LAB REVIEW: 01/25/22 05:07 01/25/22 05:07 01/25/22 05:07: Sodium 138.2, Potassium 4.49, Chloride 101.7, Carbon Dioxide 31.6 H, Anion Gap 9.39, BUN 25.7 H, Creatinine 1.01, Estimated GFR (MDRD) 72.00, BUN/Creatinine Ratio 25.44, Glucose 207.1 H D, Calcium 9.34, Total Bilirubin 0.94, AST 87.7 H, ALT 28.0, Alkaline Phosphatase 76.9, Total Protein 6.47, Albumin 3.97, Globulin 2.50, Albumin/Globulin Ratio 1.58 01/25/22 05:07: WBC 9.40, RBC 5.48, Hgb 14.8, Hct 46.1, MCV 84.1, MCH 27.0, MCHC 32.1, RDW Coeff of Karen 14.8, Plt Count 211, Immature Gran % (Auto) 0.3, Neut % (Auto) 86.7 H, Lymph % (Auto) 5.9 L, Houghton % (Auto) 6.8, Eos % (Auto) 0.1, Baso % (Auto) 0.2, Neut # (Auto) 8.2 H, Lymph # (Auto) 0.6, Houghton # (Auto) 0.6, Eos # (Auto) 0.0, Baso # (Auto) 0.0, Immature Gran # (Auto) 0.0 01/24/22 20:45: Adenovirus (PCR) Not detected, B. pertussis DNA (PCR) Not detected, B.parapertussis DNA PCR Not detected, C. pneumoniae DNA (PCR) Not detected, Coronavirus OC43 (PCR) Not detected, Coronavirus HKU1 (PCR) Not detected, Coronavirus 229E (PCR) Not detected, Coronavirus NL63 (PCR) Not detected, Human Metapneumovir PCR Not detected, Influenza Type A (PCR) Not detected, Influenza B (RT-PCR) Not detected, M. pneumoniae (PCR) Not detected, Parainfluenza 1 (PCR) Not detected, Parainfluenza 2 (PCR) Not detected, Parainfluenza 3 (PCR) Not detected, Parainfluenza 4 (PCR) Not detected, RSV (PCR) Not detected, Entero/Rhino (PCR) Not detected, SARS-CoV-2 (PCR) Detected H 01/24/22 13:00: Puncture Site Rrad, Base Excess 5.6 H, O2 Saturation 90.1 L, ABG pH 7.43, ABG pCO2 45.0, ABG pO2 57.0 L*, ABG HCO3 29.9 H, ABG Total CO2 31.3 H, Vidal Test Pos, Hemoglobin 1.1, Oxyhemoglobin 87.6 L, Carboxyhemoglobin 2.8 H, Total Hemoglobin 16.3, FiO2 % 21.0 01/24/22 12:30: Hemoglobin A1c 6.95 H 01/24/22 12:30: Free T4 1.32 01/24/22 12:30: ESR 3 01/24/22 12:30: Sodium 139.5, Potassium 4.09, Chloride 101.2, Carbon Dioxide 31.3 H, Anion Gap 11.09, BUN 28.6 H, Creatinine 1.10, Estimated GFR (MDRD) 65.00, BUN/Creatinine Ratio 26.00, Glucose 151.0 H, Calcium 10.01, Total Bilirubin 1.15, AST 94.8 H, ALT 28.2, Alkaline Phosphatase 88.3, Total Creatine Kinase 5653.7 H, CK-MB (CK-2) 14.600 H*, CK-MB (CK-2) % 0.2500, Troponin I 0.034, Total Protein 7.54, Albumin 4.51, Globulin 3.03, Albumin/Globulin Ratio 1.48, TSH 0.950 01/24/22 12:30: WBC 11.75 H, RBC 6.05, Hgb 16.2, Hct 50.9, MCV 84.1, MCH 26.8 L, MCHC 31.8, RDW Coeff of Karen 14.6, Plt Count 225, Immature Gran % (Auto) 0.3, Neut % (Auto) 87.4 H, Lymph % (Auto) 4.7 L, Houghton % (Auto) 7.0, Eos % (Auto) 0.3, Baso % (Auto) 0.3, Neut # (Auto) 10.3 H, Lymph # (Auto) 0.6, Houghton # (Auto) 0.8, Eos # (Auto) 0.0, Baso # (Auto) 0.0, Immature Gran # (Auto) 0.0 ASSESSMENT: Please see below. 1. Left lobar pneumonia 2. Renal Azotemia, improved 3. Acute respiratory failure 4. Hypertension 5. Diabetes Mellitus type II 6. COPD PLAN: 1. Lipid 2. Symbicort 160mg two puffs twice a day 3. Losartan 50mg BID 4. Sliding scale 5. Discontinue IV fluids after this bag. Plan and coordination of the patient's care discussed in the presence of [employer] and nurse. SCRIBED BY: Rupali BENAVIDES scribed while in presence of service performed by Dr. Vanegas/Stefania Garza APRN on 01/25/22 ([id number])
[2022-01-25 09:15] LABS: BILIRUBIN,URINE Negative (NEGATIVE); CLARITY,URINE Clear (CLEAR); COLOR,URINE Dark (YELLOW); GLUCOSE, URINE (UA) Trace (NEGATIVE); KETONES,URINE Negative (NEGATIVE); LEUKOCYTE ESTERASE ,URINE Negative (NEGATIVE); NITRITE,URINE Negative (NEGATIVE); PH,URINE 5.5 (5-9); PROTEIN,URINE 1+ (NEGATIVE); URINE, BLOOD 2+ (NEGATIVE); UROBILINOGEN,URINE 0.2 (0.2)
--- NOTE | 2022-01-25 09:34 | HP ---
DATE OF SERVICE: 01/24/22 REASON FOR HOSPITALIZATION/ HISTORY OF PRESENT ILLNESS: Weakness/fatigue/poor appetite. Falling/confused. Yesterday fell at home and hurt right shoulder, right ankle scratched. Patient laid on the floor and grandson got him up. Don't remember much about what happened. COVID two weeks ago. Was given infusion. The patient was brought in after one year. PAST MEDICAL HISTORY: Hypertension Diabetes Mellitus type II See office note 01/24/22 PAST SURGICAL HISTORY: Stent Right leg tractor accident Gallbladder Colonoscopy 2010 Dr. Joel REVIEW OF SYSTEMS: CONSTITUTIONAL: No fever, Fatigue. HEENT: No sinus drainage, no sore throat. RESPIRATORY: Cough, no congestion. CARDIOVASCULAR: No atypical chest pain for coronary artery disease. No angina, CHF symptoms, palpitations. Shortness of breath. GASTROINTESTINAL: No melena or abdominal pain. No GERD. Appetite not good. GENITOURINARY: No hematuria, no prostatism, no polyuria. VICTIM ADVOCATE: No blackout, no dizziness, no headache, no double vision. MUSCULOSKELETAL: Osteoarthritis pain, no joint swelling. ENDOCRINE: Weight loss 15 pounds in one year, no weight gain. SKIN: Dry, no rash. PSYCHIATRIC: Anxious, no depression, no suicidal thoughts, no homicidal thoughts. Emotional. SOCIAL HISTORY: Marital Status: . Alcohol Usage: No. Tobacco Usage: No. FAMILY HISTORY: Father healthy Mother DMII Brother 1 Sister 2 MEDICATIONS: Seen once in one year. Off all medications more than 9 months. ALLERGIES: No known allergies PHYSICAL EXAMINATION: V/S: Pulse 89, blood pressure 148/80, temperature 97.7, oxygen saturation 95%. weight 206. GENERAL APPEARANCE: Oriented times three. Son says not taking any medications. HEENT: Dry. NECK: No JVP, no bruits. RESPIRATORY: Dry cough. . CARDIOVASCULAR: S1, S2, no S3, no murmur. No cyanosis, clubbing. No ascites. GI/ABDOMEN: No tenderness. Bowel sounds are active. EXTREMITIES: edema, pulses +1, equal. VICTIM ADVOCATE: Deep tendon reflexes, sensory, motor and gait all normal. RECTAL: Dr. Joel 03/24//PROSTATE: 06/24 (3.4) 06/25 (2.5)/COLOCARE: Refused: Daughter requested for him to be seen today after one year. ASSESSMENT: 1. Falls/weakness/weight loss/ shortness of breath 2. Bronchitis/COVID 19 01/13/22 3. Chronic CHF 4. COPD Dr. Mejia 5. 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 Obesity 9. Noncompliance of all aspects of medical care 10.Diabetes mellitus type II A1c - 6.6, 11.Dysphagia 12.CAD with stent 2006 13.BPH 14.History of gout 15.ED. PLAN: 1. Admit regular 2. Routine telemetry orders 3. Sliding scale with coverage 4. Ct scan head with contrast 5. Protonix 40mg PO BID 6. 1cc Decadron IM now and QAM 7. Rocephin 1 gram today 8. TSH/T4 9. Zithromax 500mg PO daily times three days 10.A1c 11.Carotid scan 12.ABG today 13.X-ray right shoulder 14.X-ray right ankle 15.X-ray C spine/L spine 16.Sputum for culture and sensitivity 17.Oxygen 2-3 liters nasal cannula 18.DUO NEBS QID TIME SPENT: More than 70 minutes. MTDD
[2022-01-25 09:36] LABS: SQUAMOUS EPITHELIAL CELL,UR NOT PRESENT (0-5)
[2022-01-25 09:38] LABS: BACTERIA,URINE 1+ (NOT PRESENT); URINE RBC, MICROSCOPIC 0-2 (0-2)
[2022-01-25] MEDS: ROCEPHIN 1 GM/50 ML D5W 1 GM/50 ML BAG IV SCH (09:40)
[2022-01-25] MEDS: ZITHROMAX PO SCH (09:41)
[2022-01-25] MEDS: COZAAR PO SCH ×2 (09:41→20:07)
[2022-01-25] MEDS: SYMBICORT 160-4.5 MCG INHALER IH SCH ×2 (09:41→20:07)
[2022-01-25] MEDS: DECADRON IM SCH (09:41)
--- NOTE | 2022-01-25 14:27 | RS.PTINEVL ---
Subjective - Patient information Date of Evaluation: 01/25/22 Usual Living Arrangement: With Spouse Living Arrangement Comments: Lives with who has Dementia Home Environment: House, Stairs (few) (a few stairs at entrance, rest of home one level), Rail Medical History Comments:: Acid Reflux, BPH, COPD, Diabetes with neuropathy, HTN, R RTC tear, heart stent Subjective Information/ Patient Comments:: Patient states he did not have to use anything to walk with prior to this admission. States he is weak and dizzy. States he has had some falls, "but not alot". Denies dizziness during standing and ambulation with therapist. His grandson states Mr. Franco was completely independent prior to this admission. 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 His grandson reports Mr. Franco will probably want to return home as soon as he can. - Level of function Prior to this admission, the patient could do the following:: Independent Selfcare, Independent ADL's, Independent Ambulation, Drive Current Level of Function: Partially Dependent Current Equipment Used at Home: blood pressure cuff, shower chair, wheelchair, walker (wheelchair and walker are not pt's. States he picked them up somewhere in case) Interventions - Objective Patient Orientation: Person, Place, Situation Current Interventions: IV's, Oxygen, Telemetry Range of Motion - ROM Right Lower Extremity AROM: WFL's Left Lower Extremity AROM: WFL's Muscle Strength - Muscle Strength Comments:: Patient presents with general weakness. Demonstrates LE strength grossly 4-/5 throughout. Sensation - Sensation Right Lower Extremity Sensation: Impaired Left Lower Extremity Sensation: Impaired Comments: Patient with Diabetic neuropathy Balance - Sitting Balance and Reactions Static Sitting Balance: Fair (+) Dynamic Sitting Balance: Fair (+) - Standing Balance and Reactions Static Standing Balance: Fair (-) Dynamic Standing Balance: Fair (-) Functional Mobility - Bed Mobility Supine to Sit: Min Assist, Mod Assist, 1 person assist, Verbal Cues, Tactile Cues Comments:: Patient demonstrates difficulty with getting into sitting position from supine. - Transfers Sit to Stand: Min Assist, 1 person assist, Verbal Cues, Tactile Cues Stand to Sit: Min Assist, 1 person assist, 2 person assist Stand Pivot Transfers: Min Assist, 1 person assist, 2 person assist Comments:: Patient demonstrates unsteadiness with immediate standing. Demonstrates shakiness while standing. Brought Rolling walker for patient to use. Demonstrates more confidence with standing with use of walker. - Safety Awareness Safety Awareness: Poor ARMANI INDEX SCORE: NA Ambulation - Ambulation Weight Bearing Status: FWB Assistive Device Used: Rolling Walker Orthotic/Prosthetic Device: No Assistance needed with Ambulation: Min Assist, 2 person assist, Verbal Cues, Tactile Cues Quality of Ambulation: 2nd assistance needed for IV pole and O2 tank. Patient demonstrates unsteady gait. Demonstrates short stride and narrow base of support. He requires assistance with guiding the walker and when turning around. Factors Affecting Ambulation: Weakness, Cognitive Status (?) Treatment time - Time with patient Length of Evaluation: 14 mins Total treatment time: 14 Assessment - Assessment Problem List:: Decreased level of function, Requires training/education, Decreased safety/Risk of falls, Weakness, Cognitive status limits abilities (?) Rehab Potential: Good Further Therapy Indicated?: Yes Candidate for Swing Bed for Therapy Services?: May be candidate, as he was independent prior to this admission and cares for who has Dementia. Evaluation Complexity: HISTORY: Medium (BPH, COPD, Diabetes, Neuropathy, HTN, Acid reflux, R RTC tear, heart stent), EXAM OF BODY SYSTEMS: Medium, CLINICAL PRESENTATION: Medium, CLINICAL DECISION MAKING: Medium Patient's Goal(s): His goal is to return home. Short Term Goals GOAL #1: Supine to sit with CGA and VC's. Goal to be met by: 01/27/22 GOAL #2: Sit to stand with Min A of 1 and use of UE's to push from seated surface. Goal to be met by: 01/27/22 GOAL #3: Pt able to maintain standing balance against minimal resistance. Goal to be met by: 01/27/22 Penitentiary Goals GOAL #1: Pt independent with all bed mobility. Goal to be met by: 01/30/22 GOAL #2: Pt independent with transfers with good safety. Goal to be met by: 01/30/22 GOAL #3: Pt to amb with RW with supvn and good safety, household distances. Goal to be met by: 01/30/22 Plan Plan of Care: Therapeutic EX, Neuromuscular Re-Educ, Therapeutic Activity, Self- Care/Home Management Frequency of Treatment: 1-2 X day, as tolerated Duration of Treatment: 4-5 days Anticipated Discharge Destination: Home Treatment Diagnosis (ICD 10 Codes): generalized weakness M62.81, Z91.81 at risk for falls, R2.62 Difficulty with ambulation Has the Physician been added for Co-signature?: Yes
[2022-01-26] MEDS: DUONEB NEB SCH ×4 (04:50→19:20)
[2022-01-26 05:21] LABS: BASOPHILS % (AUTO) 0.2 % (0.0-3.0); EOSINOPHILS # (AUTO) 0.1 K/ul (0.0-0.7); EOSINOPHILS % (AUTO) 0.5 % (0.0-7.0); HEMATOCRIT 45.2 % (42.0-52.0); HEMOGLOBIN 14.2 g/dl (14.0-18.0); IMMATURE GRANULOCYTE % (AUTO) 0.4 % (0.0-5.0); LYMPHOCYTES # (AUTO) 0.8 K/uL (0.60-3.4); LYMPHOCYTES % (AUTO) 7.9 (10.0-50.0); MEAN CORPUSCULAR HEMOGLOBIN 26.6 pg (27.0-31.0); MEAN CORPUSCULAR HGB CONC 31.4 (31.8-35.4); MEAN CORPUSCULAR VOLUME 84.6 fl (80.0-94.0); MONOCYTES # (AUTO) 0.7 K/uL (0.4-2.0); MONOCYTES % (AUTO) 7.4 (0-10); NEUTROPHILS % (AUTO) 83.6 % (42.2-75.2); PLATELET COUNT 242 10^3/uL (140-440); RDW COEFFICIENT OF VARIATION 14.9 % (11.6-14.8); RED BLOOD COUNT 5.34 10^6/ul (4.70-6.10); WHITE BLOOD COUNT 9.55 K/ul (4.2-10.2)
[2022-01-26 05:36] LABS: ALANINE AMINOTRANSFERASE 27.4 U/L (0-50); ALBUMIN 3.94 g/dL (3.5-5.0); ALKALINE PHOSPHATASE 74.6 U/L (56-119); ASPARTATE AMINO TRANSFERASE 57.6 U/L (17-59); BILIRUBIN,TOTAL 0.69 mg/dL (0.2-1.3); BLOOD UREA NITROGEN 24.8 mg/dL (9-20); CALCIUM 9.39 mg/dL (8.4-10.2); CARBON DIOXIDE 30.5 mmol/L (22-30.0); CHLORIDE 101.1 mmol/L (98-107); CHOLESTEROL 198.8 mg/dL (0-200); CREATININE 1.16 mg/dL (0.60-1.10); GLUCOSE 210.2 mg/dL (74-106); HDL CHOLESTEROL 58.8 mg/dL (35-60); POTASSIUM 4.36 mmol/L (3.5-5.1); SODIUM 137.8 mmol/L (134.5-145); TOTAL PROTEIN 6.6 g/dL (6.3-8.2); TRIGLYCERIDES 107.2 mg/dL (0-150)
[2022-01-26] MEDS: PROTONIX PO SCH ×2 (05:44→16:30)
[2022-01-26] MEDS: HUMULIN R SUBCUT PRN ×4 (05:44→20:27)
[2022-01-26] MEDS: ROCEPHIN 1 GM/50 ML D5W 1 GM/50 ML BAG IV SCH (09:03)
[2022-01-26] MEDS: SYMBICORT 160-4.5 MCG INHALER IH SCH ×2 (09:04→20:27)
[2022-01-26] MEDS: ZITHROMAX PO SCH (09:05)
[2022-01-26] MEDS: COZAAR PO SCH ×2 (09:05→20:26)
[2022-01-26] MEDS: DECADRON IM SCH (09:06)
--- NOTE | 2022-01-26 11:48 | RS.COGEVAL ---
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 He was agreeable to participate in cognitive testing this date. Pt verbalized awareness with his current confusion that he says 'comes and goes." He went on to report confusion with feeling like he is at home vs the hospital. The patient did verbalize his family members have visited this date. Patient's Goals: To return home with assistance from family as needed. Information History:: The patient lives at home with his . It is reported the has dementia and the patient is the primary caregiver for her in the home environment. The patient reported he had stopped his medication management program for approximately nine months; which included monitoring DM and glucose levels. The pt has COPD which can be exacerbated with exertion, but he does not offer complaints at this time. The patient reported he completed bill/mail/financial coach tasks independently. 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 Formal/Objective Assessment:: The SLUMs examination was completed. The patient demonstrated 26/30 which indicates a mild cognitive impairment. Pt was oriented to day/date with use of environmental cues. Pt was oriented to facility with verbal discussion. Immediate memory recall was WFL; delayed memory recall was moderately difficult and pt recalled 2/5 memory words. Divergent naming/thought organization was mildly impaired demonstrating naming 10/15 members in 60 seconds. Clock drawing was moderately difficult as pt made errors with arranging numbers on clock, but then self-corrected; pt could not place correct time or length of hands on the clock drawing. Following simple directions and auditory comprehension was WFL. Analysis:: Moderate deficits with clock drawing and memory function; mild deficits with thought organization/working memory/ mental flexibility. Waxing/waning orientation to environment, time, situation that pt verbalizes awareness. Summary and Recommendations:: PRODUCT SAFETY OFFICER recommends pt for home health services to assist with medical management tasks. The patient demonstrated mild cognitive deficits and moderate difficulty with memory recall. PRODUCT SAFETY OFFICER recommends pt trial cognitive stimulation applications, books, or activities daily to improve or maintain cognitive functions. Pt is recommended for cognitive therapy at this time to improve orientation status, memory recall, and thought organization to improve overall cognitive status. Functional Reporting G Codes: n/a Severity Impairment Rationale: n/a Short Term Goals Problem: Orientation Goal #1: pt orient x4 100% Goal to be met by: 01/28/22 Problem: memory recall Goal #2: Functional memory recall tasks with 90% accuracy. Goal to be met by: 01/28/22 Problem: Thought organization Goal #3: Divergent/convergent naming tasks 100% Goal to be met by: 01/28/22 Problem: SOB Goal #4: Pt complete diaphragmatic breathing exercises 100% Detention Goals Problem: Cognitive decline Goal #1: Pt verb/demo WFL cognitive status on re-assessment Goal to be met by: 01/28/22 Plan Duration of Treatment: 1 Week Frequency of Treatment: 2x/week Anticipated Discharge Destination: Home (With home health services) Comments: PRODUCT SAFETY OFFICER informally assessed pt's breath support. He sustained breath for 5 seconds. He reported he is SOB and coughing alot at this time, but his baseline is SOB due to COPD. PRODUCT SAFETY OFFICER will address breath support with pt during hospital stay.
[2022-01-26 21:46] VITALS: TEMP 97.8
[2022-01-27] MEDS: DUONEB NEB SCH ×3 (04:45→14:00)
[2022-01-27 05:18] LABS: BASOPHILS % (AUTO) 0.2 % (0.0-3.0); EOSINOPHILS # (AUTO) 0.1 K/ul (0.0-0.7); EOSINOPHILS % (AUTO) 0.6 % (0.0-7.0); HEMATOCRIT 50.5 % (42.0-52.0); HEMOGLOBIN 15.6 g/dl (14.0-18.0); IMMATURE GRANULOCYTE % (AUTO) 0.4 % (0.0-5.0); LYMPHOCYTES # (AUTO) 0.7 K/uL (0.60-3.4); LYMPHOCYTES % (AUTO) 8.3 (10.0-50.0); MEAN CORPUSCULAR HEMOGLOBIN 26.6 pg (27.0-31.0); MEAN CORPUSCULAR HGB CONC 30.9 (31.8-35.4); MONOCYTES # (AUTO) 0.5 K/uL (0.4-2.0); MONOCYTES % (AUTO) 5.4 (0-10); NEUTROPHILS # (AUTO) 7.2 K/ul (2.0-6.9); NEUTROPHILS % (AUTO) 85.1 % (42.2-75.2); PLATELET COUNT 292 10^3/uL (140-440); RDW COEFFICIENT OF VARIATION 14.9 % (11.6-14.8); RED BLOOD COUNT 5.87 10^6/ul (4.70-6.10); WHITE BLOOD COUNT 8.51 K/ul (4.2-10.2)
[2022-01-27 05:34] LABS: ALANINE AMINOTRANSFERASE 35.3 U/L (0-50); ALBUMIN 4.45 g/dL (3.5-5.0); ALKALINE PHOSPHATASE 81.2 U/L (56-119); BILIRUBIN,TOTAL 0.91 mg/dL (0.2-1.3); BLOOD UREA NITROGEN 28.2 mg/dL (9-20); CALCIUM 9.93 mg/dL (8.4-10.2); CARBON DIOXIDE 31.7 mmol/L (22-30.0); CHLORIDE 98.2 mmol/L (98-107); CREATININE 1.11 mg/dL (0.60-1.10); GLUCOSE 202.7 mg/dL (74-106); POTASSIUM 4.59 mmol/L (3.5-5.1); SODIUM 138.6 mmol/L (134.5-145); TOTAL PROTEIN 7.38 g/dL (6.3-8.2)
[2022-01-27 06:05] VITALS: BP 159/80
[2022-01-27] MEDS: HUMULIN R SUBCUT PRN ×2 (06:06→12:07)
[2022-01-27] MEDS: PROTONIX PO SCH (06:07)
[2022-01-27] MEDS: ROCEPHIN 1 GM/50 ML D5W 1 GM/50 ML BAG IV SCH (09:09)
[2022-01-27] MEDS: DECADRON IM SCH (09:10)
[2022-01-27] MEDS: COZAAR PO SCH (09:10)
[2022-01-27] MEDS: SYMBICORT 160-4.5 MCG INHALER IH SCH (09:11)
--- NOTE | 2022-01-27 09:28 | PCM.PROG ---
Attending Provider: ATTENDING PROVIDER: Dr. MARIANO VANEGAS This patient is seen with Stefania Garza, Nurse Practitioner. DATE OF SERVICE: 01/27/22 SUBJECTIVE: This 77 year old /WHITE M was hospitalized 01/24/22. Alert and oriented this morning, states he wants to go home. Refuses to stay for swing bed and refuses fdc for PT/OT. He had previously stopped all medications on his own. Still weak but has been eating well and getting up without assistance. Denies any dizziness. REVIEW OF SYSTEMS: CONSTITUTIONAL: No night sweats. No fatigue, malaise, lethargy. No fever or chills. Weakness. HEENT: Eyes: No visual changes. No eye pain. No eye discharge. ENT: No runny nose. No epistaxis. No sinus pain. No odynophagia. No congestion. RESPIRATORY: Cough, no congestion. No hemoptysis. No shortness of breath. CARDIOVASCULAR: No angina symptoms. No CHF symptoms. No atypical chest pain for CAD. No palpitations. No orthopnea.. GASTROINTESTINAL: No abdominal pain. No nausea or vomiting. No diarrhea or constipation. No hematemesis. No hematochezia. GENITOURINARY: No urgency. No frequency. No dysuria. No hematuria. No obstructive symptoms. No discharge. No pain. No significant abnormal bleeding. MUSCULOSKELETAL: No musculoskeletal pain; no joint swelling. NEUROLOGICAL: Awake, alert, oriented to time, place and person. No headache. No neck pain. No syncope. No seizures. No dizziness. PSYCHIATRIC: Not anxious. No depression. No suicidal thoughts. No homicidal thoughts. SKIN: No rash. No lesions. No wounds. ENDOCRINE: No unexplained weight loss. No weight gain. HEMATOLOGIC/LYMPHATIC: No anemia. No purpura. No petechiae. No prolonged or excessive bleeding. No palpable lymph nodes. PHYSICAL EXAMINATION: GENERAL: The patient is awake, alert and oriented, sitting in bed in no distress. VITAL SIGNS: Temperature 97.8 F, Pulse 66, Respiratory Rate 20, BP 159/80, Pulse Ox 96% HEENT: Head normocephalic, atraumatic. Eyes: Extraocular muscles are intact. Pupils are equal, round and reactive to light and accommodation. Ears: No lesions. Nose appeared normal. Throat: No exudate or erythema. NECK: Supple. No JVD, no carotid bruit. No lymphadenopathy or thyromegaly. LUNGS: Diminished breath sounds. Clear to auscultation. Percussion note normal. Chest symmetrical. HEART: S1, S2, no S3. No murmurs. No cyanosis or clubbing. No ascites. Pulses: Dorsalis pedis and posterior tibial pulses +1 to +2 both sides. ABDOMEN: Soft. Non-tender. Bowel sounds active. No CVA tenderness. No mass felt. EXTREMITIES: No edema. Full range of motion of all extremities, equal. NEUROLOGIC: No focal deficit. Cranial nerves II through XII are grossly intact. No headache. No double vision. SKIN: Not dry. Intact. Turgor-normal. LYMPHATIC: No palpable lymph nodes/no lymphedema. MUSCULOSKELETAL: Normal joints with no swelling. Muscle tone is normal. LAB REVIEW: 01/27/22 04:51 01/27/22 04:51 01/27/22 04:51: Sodium 138.6, Potassium 4.59, Chloride 98.2, Carbon Dioxide 31.7 H, Anion Gap 13.29, BUN 28.2 H, Creatinine 1.11 H, Estimated GFR (MDRD) 64.00, BUN/Creatinine Ratio 25.40, Glucose 202.7 H, Calcium 9.93, Total Bilirubin 0.91, AST 55.0, ALT 35.3, Alkaline Phosphatase 81.2, Total Protein 7.38, Albumin 4.45, Globulin 2.93, Albumin/Globulin Ratio 1.51 01/27/22 04:51: WBC 8.51, RBC 5.87, Hgb 15.6, Hct 50.5, MCV 86.0, MCH 26.6 L, MCHC 30.9 L, RDW Coeff of Karen 14.9 H, Plt Count 292, Immature Gran % (Auto) 0.4, Neut % (Auto) 85.1 H, Lymph % (Auto) 8.3 L, [place] % (Auto) 5.4, Eos % (Auto) 0.6, Baso % (Auto) 0.2, Neut # (Auto) 7.2 H, Lymph # (Auto) 0.7, [place] # (Auto) 0.5, Eos # (Auto) 0.1, Baso # (Auto) 0.0, Immature Gran # (Auto) 0.0 ASSESSMENT: Please see below. 1. Acute left lobar pneumonia 2. Recent COVID 19 3. Hypertension 4. COPD 5. Acute respiratory failure 6. Diabetes Mellitus type II 7. Noncompliance with medications, diet, lifestyle and followup. PLAN: 1. Discharge home this afternoon 2. Home health for PT/OT 3. Three step ropr to discharge 4. Followup in the office next week 5. Plavix 75mg daily 6. Metformin 500mg daily 7. Lipitor 20mg daily 8. Flomax 0.4mg daily 9. Norvasc 5mg BID 10.Losartan 50mg BID 11.Protonix 40mg daily 12.Prednisone 10mg BID for 5 days 13. Omnicef 300mg BID times 7 days Plan and coordination of the patient's care discussed in the presence of Design Technology Teacher and nurse. SCRIBED BY: Rupali BENAVIDES scribed while in presence of service performed by Dr. Vanegas/Stefania Garza APRN on 01/27/22 ([id number])
--- NOTE | 2022-01-27 09:36 | DS ---
DATE OF SERVICE: 01/27/22 FINAL DIAGNOSIS: 1. Acute left lobar pneumonia 2. Recent COVID 19 3. Hypertension 4. COPD 5. Acute respiratory failure 6. Diabetes Mellitus type II 7. Noncompliance with medications, diet, lifestyle and followup. DISCHARGE INSTRUCTIONS: Discharged home today. Followup with Dr. Richardson/Stefania Garza APRN on February 03 at 11:15. Be sure to wear your oxygen at 2 liters. CODE status is full code. NEW PRESCRIPTIONS: Norvasc 5 mg TWICE a day Lipitor 20 mg ONCE a day Symbicort 2 puffs TWICE a day Plavix 75 mg ONCE a day Cozaar 50 mg TWICE a day Metformin 500 mg ONCE a day Flomax 0.4 mg ONCE a day Protonix 40 mg ONCE a day Prednisone TWICE a day for 5 days ONLY Cefdinir TWICE a day for 7 days ONLY DIET INSTRUCTIONS: 1800 ADA diabetic diet ACTIVITY: Resume as tolerated. HOSPITAL COURSE: 77 year old white male who was a direct admit from our office had contracted COVID about 2 weeks prior still having extreme weakness and frequent falls with confusion at home. He was admitted. CT of the brain and carotid scan were normal. CT of the chest showed left lobar pneumonia. Initial ABG showed respiratory failure with pO2 in 50's. The patient hasn't been in the office for approximately 6 months and quit taking all prior medications. Some of these have been started one by one in the hospital. We started Losartan for blood pressure and he was on sliding scale for diabetes mellitus. He has done well with physical therapy and qualifies for swing bed but the patient refuses swing bed placement of long term placement for physical therapy and occupational therapy. He is still wearing oxygen. We will have him do a three step propr to discharge. His home medications have been reviewed and reconciled. He will go home on Prednisone 20mg for 5 days and Omnicef 300mg for treatment of pneumonia. We will continue with Home Health for PT/OT and will have three step prior to discharge. We will followup with him in the office next week. Discussed with grandson who is POA our concern with him going home with who requires a lot of care. Family is agreeable to help. TIME SPENT: More than 60 minutes. ERASMO
--- NOTE | 2022-01-27 12:38 | PN ---
DATE OF SERVICE: 01/24/22 SUBJECTIVE: The patient was hospitalized today through the office. Chest x-ray showed possibility of bibasilar pneumonia or atelectasis. Likely atelectasis from COVID 19 status and the patient has chronic lung disease. CT scan of the head was negative. Blood test are acceptable. Condition is stable. The patient is being treated for dehydration and pneumonitis. CONDITION: Stable. TIME SPENT: More than 30 minutes. Plan and coordination of the patient's care discussed in the presence of nurse. ERASMO
--- NOTE | 2022-01-28 10:17 | ECHO2D ---
Date of Exam: 01/28/2022 Ordering Physician: DR. MARIANO VANEGAS Room #: 104 Reason for Echo: SOB, DM, CAD WITH STENT, POST COVID 19 M-Mode Normal Adult Results LV Dimensions Normal Adult Results AoV Opening excursions >1.6 >1.6 LVEDD-base- 3.5-5.8 5.0 Ao root dimensions 2.0-3.7 4.0 LVESD-base- 3.1-4.6 L. Atrium dimensions 1.9-3.8 5.0 Post. Wall thickness 0.8-1.1 1.3 IV septum (thickness) 0.7-1.2 1.4 Post. Wall excursion 0.72-1.3 NORMAL Septal motion NORMAL Systolic motion R. Ventricular cavity 1.5-2.0 3.5 LVEF 60% 77% Paradoxical septal wall motion NORMAL 2-D : 2-D M Mode Echocardiogram was performed using apical four chamber and left parasternal long and short axis views. Mitral, tricuspid and aortic valves appear to be normal. Contractility of the left ventricle seems to be normal, so is the cavity size. ENLARGED LEFT ATRIAL AND RIGHT VENTRICLE CAVITIES. BORDERLINE DILATED AORTIC ROOT. There is no pericardial effusion. There is no thrombus noted in the left ventricle or left atrial cavity. M-MODE: MV: NORMAL AV: NORMAL TV: NORMAL PV: CHAMBER SIZE: ENLARGED LEFT ATRIAL AND RIGHT VENTRICLE CAVITIES--BORDERLINE DILATED AORTIC ROOT WALL MOTION: NORMAL PERICARDIUM: NORMAL INTERPRETATION: 1. ENLARGED LEFT ATRIAL AND RIGHT VENTRICLE CAVITIES 2. LEFT VENTRICLE HYPERTROPHY 3. BORDERLINE DILATED AORTIC ROOT 4. NORMAL VALVES 5. NORMAL LEFT VENTRICLE SIZE AND LEFT VENTRICLE CONTRACTILITY MTDD
--- NOTE | 2022-01-31 07:35 | PN ---
DATE OF SERVICE: 01/27/22 SUBJECTIVE: . The patient was seen and examined with the Nurse Practitioner. The patient's pneumonia seems to have clinically resolved. He is afebrile. appetite has improved. He is oriented to time, place and person. Echo showed enlarged LA cavity, normal LV contractility, LVH noted. The patient is strongly advised to rest. COVID 19 two weeks ago with pneumonitis. The patient is obese and advised to lose 15-20 pounds. Diet discussed. The patient is doing well. He is up and about eating well. No PND. No orthopnea and no palpitation. The patient is going to be discharged home. His respiratory status has improved. His strength has improved, still has dry crepitations. No pneumonitis. He is going to be discharged on antibiotics and tapering dose of steroids. The patient has a lot of stress at home. He is noncompliant of all aspects of medical care. TIME SPENT: More than 30 minutes. Plan and coordination of the patient's care discussed in the presence of nurse. ERASMO
--- NOTE | 2022-01-31 07:36 | PN ---
01/24/22: Level 5 01/25/22: Intermediate 01/26/22: Intermediate 01/27/22: D as in discharge MTDD
--- NOTE | 2022-01-31 13:07 | PN ---
DATE OF SERVICE: 01/25/22 SUBJECTIVE: The patient was seen and examined with Nurse Practitioner. The patient's condition is stable and improving. His appetite has improved. He is cough. No PND. No orthonpea. Appetite has improved. TIME SPENT: More than 30 minutes. Plan and coordination of the patient's care discussed in the presence of nurse. ERASMO
--- NOTE | 2022-01-31 13:13 | PN ---
DATE OF SERVICE: 01/26/22 SUBJECTIVE: 77 year old white male hospitalized after being seen in the office with bronchitis, weight loss and frequent falls. The patient is feeling a lot better. The patient wants to go home. REVIEW OF SYSTEMS: CONSTITUTIONAL: No night sweats. No fatigue, malaise, lethargy. No fever or chills. HEENT: Eyes: No visual changes. No eye pain. No eye discharge. ENT: No runny nose. No epistaxis. No sinus pain. No sore throat. No odynophagia. No congestion. RESPIRATORY: No cough, no congestion. No hemoptysis. No shortness of breath. CARDIOVASCULAR: No angina symptoms. No CHF symptoms. No atypical chest pain for CAD. No palpitations. No PND. No orthopnea. GASTROINTESTINAL: No abdominal pain. No nausea or vomiting. No diarrhea or constipation. No hematemesis. No hematochezia.Appetite has improved. GENITOURINARY: No urgency. No frequency. No dysuria. No hematuria. No obstructive symptoms. No discharge. No pain. No significant abnormal bleeding. MUSCULOSKELETAL: No musculoskeletal pain; no joint swelling. Less pain in the right shoulder. No other pain. NEUROLOGICAL: No headache. No neck pain. No syncope. No seizures. No dizziness. PSYCHIATRIC: Not anxious. No depression. No suicidal thoughts. No homicidal thoughts. SKIN: No rash. No lesions. No wounds. ENDOCRINE: No unexplained weight loss. No weight gain. HEMATOLOGIC/LYMPHATIC: No anemia. No purpura. No petechiae. No prolonged or excessive bleeding. No palpable lymph nodes. PHYSICAL EXAMINATION: VITAL SIGNS: Temperature 97.7m, pulse 72, respiratory rate 20, blood pressure 142/80 and pulse ox 96%. HEENT: Head normocephalic, atraumatic. Eyes: Extraocular muscles are intact. Pupils are equal, round and reactive to light and accommodation. Ears: No lesions. Nose appeared normal. Throat: No exudate or erythema. NECK: Supple. No JVD, no carotid bruit. No lymphadenopathy or thyromegaly. LUNGS:Decreased breath sounds but clear to auscultation. Percussion note normal. Chest symmetrical. HEART: S1, S2, no S3. No murmurs. No cyanosis or clubbing. No ascites. Pulses: Dorsalis pedis and posterior tibial pulses +1 to +2 bilaterally. ABDOMEN: Soft. Nontender. Bowel sounds active. No CVA tenderness. No mass felt. EXTREMITIES: No edema. Full range of motion of all extremities, equal. NEUROLOGIC: No focal deficit. Cranial nerves II through XII are grossly intact. No headache. No double vision. SKIN: Not dry. Intact. Turgor - normal. LYMPHATIC: No palpable lymph nodes/no lymphedema. MUSCULOSKELETAL: Normal joints with no swelling. Muscle tone is normal. LABS: Hgb 14, hct 45, WBC 9,500 normal differential, creatinine 1.1, BUN 24, potassium 4.3 ASSESSMENT: 1. COVID 19 pneumonitis 2. Severe chronic lung disease 3. Frequent falls with high CK level muscular 4. Chronic lung disease 5. Hyperglycemia PLAN: 1. Continue Rocephin, Azithromycin 2. Continue Losartan and Pantoprazole 3. Encourage the patient to eat. 4. The patient is worried about all the family members, the who is practically disabled with dementia practically dependent upon him. TIME SPENT: More than 30 minutes. Plan and coordination of the patient's care discussed in the presence of nurse. ERASMO
== END 2022-01-27 14:36 | disposition home or self-care (01) | DRG 177 ==
LOC: MEDSURG A 11:43
PROVIDERS: ADMIT Internal Medicine; ATTEND Internal Medicine